=== PATIENT | male | born 2000 | race Two or more races ===

== ENCOUNTER 2022-10-27 06:06 | Day surgery (SDC) | payer OTHER | END 2022-10-27 15:20 | disposition home or self-care (01) | LOC: CIR.AMB 06:06 | PROVIDERS: ATTEND Orthopaedic Surgery Hand Surgery | DX: M71.331 Other bursal cyst, right wrist (principal); F17.210 Nicotine dependence, cigarettes, uncomplicated; Z20.822 Contact with and (suspected) exposure to COVID-19 ==